=== PATIENT | female | born 1995 | race Caucasian/White ===

== ENCOUNTER → 2020-01-22 | Outpatient (CLI) | payer OTHER ==
--- NOTE | 2020-01-22 12:28 | RADIOLOGY REPORT (SQ) ---
EXAM DESCRIPTION: U/S NON-OB PELVIS TV W/O DOP IMAGES COMPLETED DATE/TIME: 01/22/2020 12:15 pm REASON FOR STUDY: VAGINAL BLEEDING DURING (O46.90) O46.90 ANTEPARTUM HEMORRHAGE, UNSPECIF IED, UNSPECIFIED TRIME COMPARISON: None. TECHNIQUE: Transvaginal static and realtime grayscale images acquired of the pelvis. Additional elliot cted spectral and color Doppler images recorded. All images stored on PACs. CLINICAL AGE: 4 weeks BHCG: Less than 5 LIMITATIONS: None. FINDINGS: UTERUS: No visualized intrauterine . RIGHT ADNEXA: Normal ovary with normal vascular flow. No adnexal free fluid. No adnexal masses. LEFT ADNEXA: Normal ovary with normal vascular flow. No adnexal free fluid. No adnexal masses. FREE FLUID: None. OTHER: No other significant finding. IMPRESSION: NO VISUALIZED INTRA- OR EXTRAUTERINE . bHCG LEVEL TOO LOW TO EXPECT VISUALIZATION OF . ECTOPIC CANNOT BE EXCLUDED. FOLLOW-UP ULTRASOUND AND SERIAL BHCG LEVELS STRONGLY RECOMMENDED TO ACCURATELY ASSESS STATU S. TECHNICAL DOCUMENTATION: JOB ID: [id number] 2010 [employer]- All Rights Reserved Reading location - IP/workstation name: [email or web address]
== END ==
LOC: WI 10:47
PROVIDERS: ATTEND Family Medicine
DX: O46.90 Antepartum hemorrhage, unspecified, unspecified trimester (principal); Z3A.00 Weeks of gestation of pregnancy not specified
CPT/HCPCS: 36415; 76830; 84702

== ENCOUNTER 2020-07-17 11:34 | Emergency (ER) | payer OTHER ==
[2020-07-17] MEDS ORDERED: METOCLOPRAMIDE HCL 10 MG TABLET PO ONE (11:57)
[2020-07-17] MEDS ORDERED: NORMAL SALINE 1000 ML 1,000 ML IV ONE (11:57)
--- NOTE | 2020-07-17 12:01 | ER Document Report ---
ED Medical Screen (RME) - General Chief Complaint: Diarrhea Stated Complaint: DIARRHEA,COUGH,CONGESTION Time Seen by Provider: 07/17/20 11:53 Primary Care Provider: MORRO PAUL MD [Primary Care Provider] - Follow up as needed Mode of Arrival: Ambulatory Information source: Patient Notes: 25-year-old female presents to ED for complaint of diarrhea congestion cough and nausea. She states she has had the diarrhea for several days. She is 15 weeks . She states she has not had any fever or vomiting. 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 She states her last [employer] P[employer] visit was about 5 weeks ago. She states she called and they told her she needed to come to the emergency room room and get evaluated due to the fact she was a teacher. Patient is alert oriented respirations regular nonlabored speaking in full sentences. I have greeted and performed a rapid initial assessment of this patient. A comprehensive ED assessment and evaluation of the patient, analysis of test results and completion of medical decision making process will be conducted by an additional ED providers. Past Medical History - Social History Chew tobacco use (# tins/day): No Frequency of alcohol use: None Drug Abuse: None Physical Exam - Vital signs Vitals: Temp Pulse Resp BP Pulse Ox 98.6 F 71 18 114/56 L 99 07/17/20 11:40 07/17/20 11:40 07/17/20 11:40 07/17/20 11:40 07/17/20 11:40 Course - Vital Signs Vital signs: Temp Pulse Resp BP Pulse Ox 98.6 F 71 18 114/56 L 99 07/17/20 11:40 07/17/20 11:40 07/17/20 11:40 07/17/20 11:40 07/17/20 11:40 Doctor's Discharge - Discharge Referrals: MORRO PAUL MD [Primary Care Provider] - Follow up as needed
[2020-07-17 12:56] LABS: APPEARANCE,URINE CLEAR; BILIRUBIN,URINE NEGATIVE (NEGATIVE); COLOR,URINE STRAW; GLUCOSE, URINE NEGATIVE (NEGATIVE); KETONES,URINE NEGATIVE (NEGATIVE); LEUKOCYTE ESTERASE,URINE SMALL (NEGATIVE); NITRITE,URINE NEGATIVE (NEGATIVE); PROTEIN,URINE NEGATIVE (NEGATIVE); URINE SPECIFIC GRAVITY 1.005; UROBILINOGEN,URINE NEGATIVE mg/dL (<2.0)
[2020-07-17 12:56] LABS: ABSOLUTE EOSINOPHILS # (AUTO) 0.2 10^3/uL (0.0-0.6); ABSOLUTE LYMPHOCYTES (AUTO) 1.2 10^3/uL (0.5-4.7); ABSOLUTE MONOCYTES (AUTO) 0.3 10^3/uL (0.1-1.4); ABSOLUTE NEUT (AUTO) 6.3 10^3/uL (1.7-8.2); BASOPHILS % (AUTO) 0.2 % (0-2); HEMATOCRIT 34.7 % (36.0-47.0); HEMOGLOBIN 12.4 g/dL (12.0-15.5); LYMPHOCYTES % (AUTO) 14.6 % (13-45); MEAN CORPUSCULAR HEMOGLOBIN 32.4 pg (27.0-33.4); MEAN CORPUSCULAR HGB CONC 35.7 g/dL (32.0-36.0); MEAN CORPUSCULAR VOLUME 91 fl (80-97); PLATELET COUNT 266 10^3/uL (150-450); RED BLOOD COUNT 3.81 10^6/uL (3.72-5.28); RED CELL DISTRIBUTION WIDTH 13.2 % (11.5-14.0); SEGMENTED NEUTROPHILS % (AUTO) 79.2 % (42-78); TOTAL CELLS COUNTED % (AUTO) 100 %; WHITE BLOOD COUNT 7.9 10^3/uL (4.0-10.5)
--- NOTE | 2020-07-17 13:04 | ER Document Report ---
ED GI/ - General Chief Complaint: Diarrhea Stated Complaint: DIARRHEA,COUGH,CONGESTION Time Seen by Provider: 07/17/20 11:53 Primary Care Provider: MORRO PAUL MD [Primary Care Provider] - Follow up as needed Mode of Arrival: Ambulatory Notes: Patient is a G1, P0 15-week 25-year-old female who presents the emergency department with a chief complaint of diarrhea, cough, nausea, and congestion. Patient states that she has had diarrhea for the past few days. Denies any fever. Denies any dysuria. Patient is not sure if she has felt the baby move yet. States that she feels little bit of fluttering feeling, but no definite movement. 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 - Related Data Allergies/Adverse Reactions: TB test Adverse Reaction (Uncoded 07/17/20 11:59) Past Medical History - General Information source: Patient - Social History Smoking Status: Never Smoker Chew tobacco use (# tins/day): No Frequency of alcohol use: None Drug Abuse: None Family History: Reviewed & Not Pertinent Review of Systems - Review of Systems Notes: REVIEW OF SYSTEMS: CONSTITUTIONAL : Denies recent unintentional weight loss. See HPI. EENT: See HPI. CARDIOVASCULAR: Denies chest pain. RESPIRATORY: See HPI. GASTROINTESTINAL: See HPI. GENITOURINARY: Denies difficulty urinating, burning, blood in urine, urgency or frequency. MUSCULOSKELETAL: Denies neck and back pain. Denies joint pain or swelling. SKIN: Denies rash, itchiness, or lesions HEMATOLOGIC : Denies easy bruising or bleeding. LYMPHATIC: Denies swollen, painful, enlarged glands. NEUROLOGICAL: Denies no numbness or tingling denies weakness. Denies headache. Denies altered mental status. Denies alteration in speech. PSYCHIATRIC: Denies stress, anxiety, alteration in sleep patterns, or depression. All other systems reviewed and negative. Physical Exam - Vital signs Vitals: Temp Pulse Resp BP Pulse Ox 98.6 F 71 18 114/56 L 99 07/17/20 11:40 07/17/20 11:40 07/17/20 11:40 07/17/20 11:40 07/17/20 11:40 - Notes Notes: PHYSICAL EXAMINATION: GENERAL: Appears well, healthy, well-nourished, no acute distress. HEAD: Normocephalic, atraumatic. EYES: PERRL, conjunctiva normal, all extraocular movements intact, sclera nonicteric ENT: Moist mucous membranes. Clear rhinorrhea noted NECK: Supple, no noticeable swelling, redness, rash. Normal range of motion. LUNGS: Equal breath sounds bilaterally and clear to auscultation. No wheezes rales or rhonchi. CARDIOVASCULAR: S1-S2, regular rate, regular rhythm. Radial pulses 2+, normal. ABDOMEN: Normoactive bowel sounds. Soft, nontender, no guarding, no rebound tenderness, and no masses palpated. EXTREMITIES: Normal strength and range of motion, no pitting or edema. No cyanosis. NEUROLOGICAL: Moves all extremities upon command. Strength 5/5 in all extremities. PSYCH: Normal mood, normal affect. SKIN: Warm, dry. No rash, lesions, ulcerations noted. Normal skin turgor. Course - Re-evaluation Re-evalutation: 07/17/20 13:19 Reevaluated the patient. Patient states that she feels better after receiving fluids and Reglan. Hematology is unremarkable. Urinalysis shows a small amount of leukocytes in her urine. Chemistries are still pending, along with quantitative hCG. Awaiting ultrasound results. 07/17/20 14:14 Chemistries show a slightly low sodium, which she received IV fluids 4. Glucose was 71. To give the patient some grapes she has since she tolerated that well. hCG is 38,800. Urinalysis shows a small amount of leukocytes in her urine, which may be due to to her having diarrhea. Denies any urinary symptoms. The patient was evaluated during the global COVID-19 pandemic and that diagnosis was suspected/considered upon their initial presentation. Their evaluation, treatment and testing was consistent with current guidelines for patients who present with complaints or symptoms that may be related to COVID- 19. Follow-up precautions were given. Verbal discharge instructions were given to the patient. They verbalized understanding. They are stable for discharge. - Vital Signs Vital signs: Temp Pulse Resp BP Pulse Ox 98.2 F 65 16 107/60 100 07/17/20 16:33 07/17/20 14:30 07/17/20 14:30 07/17/20 14:30 07/17/20 14:30 - Laboratory Result Diagrams: 07/17/20 12:40 07/17/20 12:40 Laboratory results interpreted by me: 07/17/20 07/17/20 07/17/20 12:10 12:40 12:40 Hct 34.7 L Seg Neutrophils % 79.2 H Sodium 136.1 L BUN 4 L Creatinine 0.51 L Glucose 71 L Beta HCG, Quant 03132.00 H Ur Leukocyte Esterase SMALL H Urine Ascorbic Acid 20 H Discharge - Discharge Clinical Impression: Suspected COVID-19 virus infection Diarrhea Qualifiers: Diarrhea type: unspecified type Qualified Code(s): R19.7 - Diarrhea, unspecified Condition: Stable Disposition: HOME, SELF-CARE Instructions: COVID-19 Guidance for Persons Under Investigation Additional Instructions: You were seen today in the emergency department for diarrhea. Your ultrasound and labs are reassuring. You can start eating bananas, rice, applesauce and toast. Please eat small frequent meals. You were also tested for COVID-19. The health department will call you with your results. Stay in quarantine until your results are back. If your results are positive, stay in quarantine for at least 2 weeks. Wash your hands frequently. Take Reglan as needed for nausea or vomiting. Follow-up with your ENVIRONMENTAL MANAGEMENT SPECIALIST after quarantine in regards to this visit. Prescriptions: Metoclopramide HCl [Reglan 10 mg Tablet] 1 - 2 tab PO ASDIR PRN #25 tablet PRN Reason: Referrals: MORRO PAUL MD [Primary Care Provider] - Follow up as needed
[2020-07-17 13:13] LABS: ALBUMIN 3.9 g/dL (3.5-5.0); ALKALINE PHOSPHATASE 41 U/L (38-126); ANION GAP 7 (5-19); ASPARTATE AMINO TRANSFERASE 16 U/L (14-36); BILIRUBIN,DIRECT 0.2 mg/dL (0.0-0.4); BILIRUBIN,TOTAL 0.4 mg/dL (0.2-1.3); BLOOD UREA NITROGEN 4 mg/dL (7-20); CALCIUM 9.2 mg/dL (8.4-10.2); CARBON DIOXIDE 24 mmol/L (22-30); CHLORIDE 105 mmol/L (98-107); GLUCOSE 71 mg/dL (75-110); POTASSIUM 4.2 mmol/L (3.6-5.0); TOTAL PROTEIN 6.7 g/dL (6.3-8.2)
--- NOTE | 2020-07-17 13:42 | RADIOLOGY REPORT (SQ) ---
EXAM DESCRIPTION: U/S OB 14+ TRNABD 1GES W/O DOP IMAGES COMPLETED DATE/TIME: 07/17/2020 1:04 pm REASON FOR STUDY: nausea diarrhea 15 weeks COMPARISON: OB ultrasound 01/22/2020 TECHNIQUE: Static and Dynamic grayscale imaging performed of gravid uterus using transabdominal appr oach. Additional selected color Doppler and spectral images recorded. All stored on PACS. LIMITATIONS: None. FINDINGS: FETUSES SEEN:1 EGA: 15 weeks 6 days Calculated using BPD,FL,HC,AC documented on images. No discrepancy with clinica l dates. MAHESH: 01/02/2021 EFW: Not calculated PERCENTILE: Not applicable. Fetus less than or equal to 20 weeks gestation. AUTUMN: Visually adequate PLACENTA: Developing posteriorly grade 0 PRESENTATION: Breech. ANATOMY: HEART RATE: 150 beats per minute. FOUR CHAMBER HEART: Not evaluated. THREE VESSEL CORD: Not evaluated CORD INSERTION: Unremarkable KIDNEYS AND BLADDER: Not well seen STOMACH: Visualized. Appears normal. SPINE: Normal as visualized. BRAIN AND LATERAL VENTRICLES: Visualized. Appear normal. OTHER: No other significant finding. MATERNAL ADNEXA: Maternal ovaries not visualized. CERVICAL LENGTH: 3.4 cm Closed. OTHER: No other significant finding. IMPRESSION: LIVING INTRAUTERINE . ESTIMATED GESTATIONAL AGE 15 weeks 6 days NO VISUALIZED ANOMALIES. Limited anatomic survey due to early gestational age Trimester of : Second trimester - 13 weeks 1 day to 27 weeks 6 days. TECHNICAL DOCUMENTATION: JOB ID: [id number] 2010 [employer]- All Rights Reserved Reading location - IP/workstation name: [email or web address]
[2020-07-17 14:39] VITALS: BP 107/60
== END 2020-07-17 14:39 | disposition home or self-care (01) ==
LOC: ER 11:34
DX: O26.892 Other specified pregnancy related conditions, second trimester (principal); R19.7 Diarrhea, unspecified; R05 Cough; R11.0 Nausea; Z20.828 Contact with and (suspected) exposure to other viral communicable diseases; Z3A.15 15 weeks gestation of pregnancy
CPT/HCPCS: 99284; 96360; 36415; 84702; 85025; 87635; 80053; 81001; 76805; J7030; C9803